=== PATIENT | male | born 1935 ===

== ENCOUNTER 2022-09-28 18:24 | Inpatient (IN) | payer MEDICARE, OTHER ==
[2022-09-28] VITALS (10 sets, daily range): BP systolic 149–181; BP diastolic 68–128
[~2022-09-28] VITALS: Ht 195.6 cm; Wt 59.2 kg
[2022-09-28 21:26] LABS: BASOPHILS ABSOLUTE AUTO 0.03 K/mm3 (0.00-0.23); BASOPHILS PERCENT AUTO 0 % (0-2); EOSINOPHILS ABSOLUTE AUTO 0.07 K/mm3 (0.00-0.68); EOSINOPHILS PERCENT AUTO 1 % (0-6); Hematocrit 47.1 % (37.0-53.0); Hemoglobin 15.1 g/dL (13.5-17.5); IMMATURE GRAN ABSOLUTE AUTO 0.07 K/mm3 (0.00-0.10); IMMATURE GRAN PERCENT AUTO 1 % (0-1); LYMPHOCYTES ABSOLUTE AUTO 4.35 K/mm3 (0.84-5.20); LYMPHOCYTES PERCENT AUTO 36 % (21-46); MONOCYTES ABSOLUTE AUTO 0.68 K/mm3 (0.16-1.47); MONOCYTES PERCENT AUTO 6 % (4-13); Mean Corpuscular HGB 29.9 pg (26.0-34.0); Mean Corpuscular HGB Conc 32.1 g/dL (31.5-36.5); Mean Corpuscular Volume 93 fL (80-100); Mean Platelet Volume 10.6 fL (9.1-12.4); NEUTROPHILS ABSOLUTE AUTO 6.87 K/mm3 (1.96-9.15); NEUTROPHILS PERCENT AUTO 57 % (41-73); Platelet Count 312 K/mm3 (150-400); RDW Coefficient Variation 16.8 % (11.7-14.2); RDW Standard Deviation 57.3 fL (35.1-46.3); Red Blood Cell Count 5.05 M/mm3 (4.30-5.90); White Blood Cell Count 12.07 K/mm3 (4.00-11.30)
[2022-09-28 21:44] LABS: Albumin, Blood 3.1 g/dL (3.4-5.0); Anion Gap 7 mmol/L (6-16); Blood Urea Nitrogen 22 mg/dL (8-24); CO2, Blood 30 mmol/L (21-32); Calcium, Blood 9.1 mg/dL (8.5-10.1); Chloride, Blood 107 mmol/L (98-108); Glomerular Filtration Rate 66 (60-); Glucose, Blood 111 mg/dL (70-99); Phosphorus, Blood 3.3 mg/dL (2.5-4.9); Potassium, Blood 3.7 mmol/L (3.5-5.5); Sodium, Blood 144 mmol/L (136-145)
[2022-09-28 21:51] LABS: Anti-Xa UFH, PHA Monitoring 0.69 IU/mL; International Normalized Ratio 1.19; Prothrombin Time Results 12.4 Sec (9.7-11.5)
--- NOTE | 2022-09-28 22:03 | NUR ---
ASSUMED CARE PT ARRIVED ON UNIT AT 2024. SPO2 >92% ON RA W/ HEPARIN RUNNING AT 18 UNITS/KG/HR; 22.7 MLS/HR. SBP IN THE 160-170'S. A&O X4. PT WAS TACHYPNEIC AND DENIED C/P FOR THIS RN, BUT STATED TO DR OMER THAT HE HAD AN "ACHINESS" IN HIS CHEST. HAS WET COUGH THAT PT STATES HE HAS HAD FOR 4 WEEKS. PT'S BILATERAL EXTREMITIES ARE CYANOTIC; PT DENIES NUMBNESS/TINGLING. CAP REFILL >3 SECONDS IN ALL EXTREMITIES. REDNESS NOTED ON COCCYX AND MIDDLE OF BACK. AFEBRILE.
[2022-09-29] VITALS (32 sets, daily range): BP systolic 126–189; BP diastolic 52–112
--- NOTE | 2022-09-29 01:00 | NUR ---
UPDATE PT HAVING SHORT IVELISSE EPISODES; NOW ON 2L NC. DR RUBIO NOTIFIED W/ NO NEW ORDERS.
[2022-09-29 01:30] LABS: BASOPHILS ABSOLUTE AUTO 0.06 K/mm3 (0.00-0.23); BASOPHILS PERCENT AUTO 1 % (0-2); EOSINOPHILS ABSOLUTE AUTO 0.09 K/mm3 (0.00-0.68); EOSINOPHILS PERCENT AUTO 1 % (0-6); Hematocrit 45.8 % (37.0-53.0); Hemoglobin 14.7 g/dL (13.5-17.5); IMMATURE GRAN ABSOLUTE AUTO 0.11 K/mm3 (0.00-0.10); IMMATURE GRAN PERCENT AUTO 1 % (0-1); LYMPHOCYTES ABSOLUTE AUTO 4.62 K/mm3 (0.84-5.20); LYMPHOCYTES PERCENT AUTO 36 % (21-46); MONOCYTES ABSOLUTE AUTO 0.78 K/mm3 (0.16-1.47); MONOCYTES PERCENT AUTO 6 % (4-13); Mean Corpuscular HGB 29.6 pg (26.0-34.0); Mean Corpuscular HGB Conc 32.1 g/dL (31.5-36.5); Mean Corpuscular Volume 92 fL (80-100); Mean Platelet Volume 10.6 fL (9.1-12.4); NEUTROPHILS ABSOLUTE AUTO 7.31 K/mm3 (1.96-9.15); NEUTROPHILS PERCENT AUTO 56 % (41-73); Platelet Count 320 K/mm3 (150-400); RDW Coefficient Variation 16.8 % (11.7-14.2); RDW Standard Deviation 56.5 fL (35.1-46.3); Red Blood Cell Count 4.97 M/mm3 (4.30-5.90); White Blood Cell Count 12.97 K/mm3 (4.00-11.30)
[2022-09-29 02:05] LABS: Bilirubin, Total 1.5 mg/dL (0.1-1.0); Bun/Creatinine Ratio 21.7 (12.0-20.0); Creatinine, Blood 1.06 mg/dL (0.60-1.20); Globulin, Blood 2.9 g/dL (2.2-4.0); Magnesium, Blood 2.4 mg/dL (1.6-2.4); Potassium, Blood 3.5 mmol/L (3.5-5.5); Total Protein, Blood 5.9 g/dL (6.4-8.2)
--- NOTE | 2022-09-29 02:19 | NUR ---
UPDATE PT WAS IVELISSE IN THE HIGH 30'S LOW 40'S THEN BECAME TACHY UP INTO THE 150-160'S. PT DENIES ANY SYMPTOMS.
--- NOTE | 2022-09-29 05:44 | NUR ---
SHIFT SUMMARY PT HAS BEEN RESTLESS T/O NIGHT; INTERMITTANT CONFUSION/FORGETFULNESS, BUT EASILY REDIRECTIBLE (UNSURE IF THIS IS BASELINE). PT URINATED FREQUENTLY T/O NIGHT, USED URINAL APPROPRIATELY AND HAD ONE EPISODE OF BEDWETTING. PT REMAINS ON 2L NC. NO OTHER EVENTS OCCURRED SINCE PREVIOUS NOTES.
--- NOTE | 2022-09-29 08:20 | NUR ---
ASSUMED CARE REPORT FROM BRETT SIMS AT 0700. PT RESTING IN BED. WAKES c VERBAL STIMULI. ORIENTED TO SELF ONLY. REORIENTS EASILY. FOLLOWS COMMANDS. DENIES COMPLAINTS. SPEAKS IN FULL SENTENCES. LUNGS COARSE THROUGHOUT. NON PRODUCTIVE COUGH. ON RA, O2 SATS >92%. AFIB ON MONITOR, RATE 90-100'S. HTN NOTED. DISCOLORATION TO EXT. PT STATES THIS STARTED SEVERAL MONTHS AGO. CAP REFILL <3 SEC. ABD ROUND, SOFT, NON TENDER. BT X 4. HEPARIN GTT INFUSING AT 18 UNIT/KG/HR. AWAITING ECHO. WILL CONTINUE TO MONITOR.
--- NOTE | 2022-09-29 13:28 | NUR ---
Pt resting in bed upon arrival. Pt A&OX3. Pt a little confused on place thinking he was still in [place]. Engaged in therapeutic discussion regarding code status wishes. Educated on life sustaining treatments including risks and implications of CPR/Intubation. Answered questions and offered therapeutic listening. Pt reports understanding of information given and would like to remain a full code. Palliative Care will remain available
[2022-09-29] MEDS ORDERED: ELIQUIS5 M3 PO (15:48)
[2022-09-29] MEDS ORDERED: METOPROLOL TART25 MG PO (15:49)
[2022-09-29] MEDS ORDERED: LOSARTAN POTASS25 M2 PO (15:49)
[2022-09-29] MEDS ORDERED: Ventolin/Prove6.7 GM INH (15:49)
--- NOTE | 2022-09-29 17:16 | NUR ---
Case Conference Note Received call from Pt's primary RN Stephanie reporting daughter would like Pt to be DNR. Called and spoke with Pt's daughter Evelyn. Provided update and reviewed plan of care. Offered therapeutic listening as Evelyn reports Pt is living with her. She reports Pt has confusion at baseline and has been diagnosed with Alheimer's Dementia. She also reports Pt has active prostate cancer, leukemia, and a history of Afib. She reports Pt is not actively treating his cancers as his doctor told her that Pt will pass from something else before the cancer runs it's coarse due to be slow growing. Daughter Evelyn reports Pt needs to be DNR as she understands the risks and implications to CPR. Continued therapeutic listening and answered questions. Will speak with Dr Youssef regarding code status wishes. Nikki Rivas [phone] Palliative Care will remain available
--- NOTE | 2022-09-29 17:54 | NUR ---
SHIFT SUMMARY PT STATUS CHANGED TO PCU. REMAINS ON HEPARIN GTT. PT A&OX 1. REORIENTS EASILY. FOLLOWS SIMPLE COMMANDS. LUNGS COARSE, PLACED ON 2L VIA NC. NON PRODUCTIVE COUGH. PT INTERMITTANTLY SOB, ABLE TO WARE FINISHER BREATHING. PT HAD ONE EPISODE OF TACHY-IVELISSE, CARDIOLOGY CONSULTED, NO PLANNED INTERVENTIONS. CONTINUES TO HAVE DISCOLORATION TO EXT. UPDATED DAUGHTER, REPORTS PT HAS MULTIPLE COMORBITITES, PUT IN TOUCH c PALLIATIVE CARE. WILL CONTINUE TO MONITOR UNTIL REPORT TO ONCOMING NURSE.
--- NOTE | 2022-09-29 19:26 | NUR ---
ASSUEMD CARE PATIENT IN BED AWAKE ALERT TO SELF. NO FAMILY AT BEDSIDE. HEPARIN INFUSING AT 18U/KG/HR.
[2022-09-30] VITALS (11 sets, daily range): BP systolic 128–195; BP diastolic 73–102
[2022-09-30 04:22] LABS: Calcium, Blood 8.5 mg/dL (8.5-10.1); Creatinine, Blood 0.83 mg/dL (0.60-1.20); Magnesium, Blood 2.1 mg/dL (1.6-2.4); Phosphorus, Blood 2.6 mg/dL (2.5-4.9); Potassium, Blood 3.9 mmol/L (3.5-5.5)
--- NOTE | 2022-09-30 06:27 | NUR ---
SHIFT SUMMARY PATIENT ALERT TO SELF. CONFUSED/FORGETFUL/HALLUCINATIONS. IN AFIB WITH OCCASIONAL BRADYCARDIA EPISODED INTO THE 30'S NON SUSTAINED. TACHYPENIC. INCONT/CONTINET. HEPARIN INFUSING, ANTI XA THERAPEUTIC.
--- NOTE | 2022-09-30 09:24 | NUR ---
ASSUMED CARE REPORT FROM ELADIO SIMS AT 0700. PT RESTING IN BED. AWAKE. A&OX 1. THINKS HE IS [place]HO[place]. REORIENTS EASILY. FOLLOWS COMMANDS. C/O PIERCE AND INCREASED SOB. MEDICATED c TYLENOL. LUNGS COARSE c OCCASIONALLY WHEEZING. DR ESCOBAR NOTIFIED FOR BREATHING TX. NON PRODUCTIVE COUGH. AFIB, RATE 80-90'S. BP STABLE. DISCOLORATION TO EXT. CAP REFILL>3 SEC. ABD ROUND, SOFT, NON TENDER. BT X 4 GOOD APPETITE THIS AM. HEPARIN GTT INFUSING. WILL CONTINUE TO MONITOR.
--- NOTE | 2022-09-30 17:29 | NUR ---
SHIFT SUMMARY PT A&O X2, REORIENTS EASILY. FOLLOWS COMMANDS. CONTINUES ON HEPARIN GTT, PLAN TO TRANSITION TO [facility] AT 2100. PT HAS INTERMITTANT SOB, RESOLVES c COACHING. LUNGS COARSE, ON RA, O2 SATS >92%. NON PRODUCTIVE COUGH. PT HAS HAD MULTIPLE EPISODES OF BRADYCARDIA, RATE MID 30'S. CORRELATED c PT USING URINAL. RESOLVES SPONTANEOUSLY. BP STABLE. DISCOLORATION TO EXT IMPROVED THIS SHIFT. BEDBATH COMPLETE. UP TO CHAIR FOR DINNER. WILL CONTINUE TO MONITOR UNTIL REPORT TO ONCOMING NURSE.
--- NOTE | 2022-09-30 19:21 | NUR ---
ASSUMED CARE PATIENT IN BED RESTING W/EYES CLOSED. NO FAMILY AT BEDSIDE. PATIENT IN AFIB RATE 60-70'S. ON RA SATS >92% HEPARIN INFUSING. BED ALARM/CALL LIGHT WITHIN REACH.
[2022-10-01] VITALS (11 sets, daily range): BP systolic 144–175; BP diastolic 82–108
[2022-10-01 03:59] LABS: Hemoglobin 14.3 g/dL (13.5-17.5); Mean Corpuscular HGB 29.9 pg (26.0-34.0); Mean Corpuscular HGB Conc 32.5 g/dL (31.5-36.5); Mean Corpuscular Volume 92 fL (80-100); Mean Platelet Volume 11.1 fL (9.1-12.4); Platelet Count 292 K/mm3 (150-400); RDW Coefficient Variation 16.5 % (11.7-14.2); RDW Standard Deviation 55.2 fL (35.1-46.3); Red Blood Cell Count 4.79 M/mm3 (4.30-5.90); White Blood Cell Count 13.11 K/mm3 (4.00-11.30)
[2022-10-01 04:23] LABS: Albumin, Blood 2.9 g/dL (3.4-5.0); Anion Gap 5 mmol/L (6-16); Blood Urea Nitrogen 33 mg/dL (8-24); Bun/Creatinine Ratio 42.2 (12.0-20.0); CO2, Blood 27 mmol/L (21-32); Calcium, Blood 8.8 mg/dL (8.5-10.1); Chloride, Blood 105 mmol/L (98-108); Creatinine, Blood 0.78 mg/dL (0.60-1.20); Glomerular Filtration Rate 87 (60-); Glucose, Blood 109 mg/dL (70-99); Magnesium, Blood 2.4 mg/dL (1.6-2.4); Phosphorus, Blood 2.9 mg/dL (2.5-4.9); Potassium, Blood 4.8 mmol/L (3.5-5.5); Sodium, Blood 137 mmol/L (136-145)
--- NOTE | 2022-10-01 06:43 | NUR ---
SHIFT SUMMARY PATIENT REMAINS A&O TO SELF. HAD SEVERAL EPISODES OF BRADYCARDIA LOW 29, NON SUSTAINED HR NORMALIZED AFTER PLACING THE PATIENT IN A SUPINE POSITION.
--- NOTE | 2022-10-01 08:00 | NUR ---
ASSUMED CARE REPORT FROM ELADIO SIMS AT 0700. PT RESTING IN BED. AWAKE, ORIENTED TO SELF ONLY. FOLLOWS SIMPLE DIRECTIONS. ABLE TO MAKE NEEDS KNOWN. DENIES COMPLAINTS AT THIS TIME. AFIB ON MONITOR, RATE 70'S. OCCASIONAL EPISODES OF BRADYCARDIA LASTING 6-10 SEC. AT TIMES PT SYMPTOMATIC c SOB, OTHER TIMES DENIES SYMPTOMS. BP STABLE. HAS LABORED, TACHYPNEIC RESP c EPISODES. ABLE TO ETL BI DEVELOPER DEEP BREATHING. WILL CONTINUE TO MONITOR.
--- NOTE | 2022-10-01 17:13 | NUR ---
SHIFT SUMMARY/TRANSFER TO PCU NO ACUTE CHANGES THIS SHIFT. PT HAVING FEWER EPISODES OF BRADYCARDIA THAN THIS AM. INTERMITTANTLY SOB. DAUGHTER STATES THIS HAS BEEN HAPPENING AT HOME FOR SEVERAL YEARS. A&OX 1. REORIENTS EASILY. LUNGS COARSE, NON PRODUCTIVE COUGH. AFIB ON MONITOR. RATE 70'S. BP STABLE. UP TO CHAIR FOR DINNER. WILL TRANSFER TO PCU 18 p DINNER c ALL BELONGINGS.
--- NOTE | 2022-10-01 18:13 | NUR ---
PT ARRIVED TO ROOM FROM ICU TRANSFERRED W/MIN MARC FROM TO BED. WANTED TO SIT ON EDGE OF BED TO CATCH BREATH. TELE PLACED AND VERIFIED. LUNGS COARSE T/O. HR 87. 100RA. TACHYPNIC AT 28. TEMP 97.0. BP 175/106. MANAGER RFID CALLED AND LM FOR DAUGHTER NOTIFYING OF ROOM CHANGE.
[2022-10-02] VITALS: BP 149/93
[2022-10-02 03:55] VITALS: BP 147/91
--- NOTE | 2022-10-02 04:52 | NUR ---
SHIFT SUMMARY PT IS A/Ox2-3 AND IS MOSTLY COOPERATIVE WITH CARE PROVIDED BY MEMBERS OF STAFF. ANSWERS QUESTIONS APPROPRIATELY AND ABLE TO COMMUNICATE MOST NEEDS. NO ACUTE EVENTS LAST NIGHT FOR PT SLEPT FOR MOST OF THE SHIFT. REMAINS CONFUSED AT TIMES AND TENDS TO PULL OFF ALL LINES AND CORDS. ABLE TO BE EASILY REDIRECTED HOWEVER. MAINTAINS SPO2 >90% ON 2-3L VIA NC. INCREASED RR WELL REPORTS OF SOB WHEN PT IS NOT ON O2. SOB NOTED WITH EXERTION, BUT HE IS ABLE TO RECOVER WELL. CARDIAC NOEL, REMAINS IN AFIB WITH HR RANGING 80-100'S. NO C/O CP OR PRESSURE T/O THE NIGHT. BP WAS STABLE. ABLE TO ABULATE TO BSC OR BATHROOM. INCONTINENT/CONTINENT FOR HE TENDS TO HAVE ACCIDENTS T/O THE NIGHT. NO NEW ORDERS AT THIS TIME, WILL REPORT TO ONCOMING RN. TATO MUNGUIA T/O THE SHIFT
[2022-10-02 04:53] LABS: Hematocrit 42.1 % (37.0-53.0); Hemoglobin 13.8 g/dL (13.5-17.5); Mean Corpuscular HGB 30.1 pg (26.0-34.0); Mean Corpuscular HGB Conc 32.8 g/dL (31.5-36.5); Mean Corpuscular Volume 92 fL (80-100); Mean Platelet Volume 10.8 fL (9.1-12.4); Platelet Count 268 K/mm3 (150-400); RDW Coefficient Variation 16.5 % (11.7-14.2); Red Blood Cell Count 4.58 M/mm3 (4.30-5.90); White Blood Cell Count 15.22 K/mm3 (4.00-11.30)
[2022-10-02 05:17] LABS: Anion Gap 4 mmol/L (6-16); Blood Urea Nitrogen 32 mg/dL (8-24); Bun/Creatinine Ratio 40.2 (12.0-20.0); CO2, Blood 27 mmol/L (21-32); Calcium, Blood 8.7 mg/dL (8.5-10.1); Chloride, Blood 106 mmol/L (98-108); Glomerular Filtration Rate 87 (60-); Glucose, Blood 101 mg/dL (70-99); Magnesium, Blood 2.3 mg/dL (1.6-2.4); Phosphorus, Blood 2.9 mg/dL (2.5-4.9); Potassium, Blood 4.2 mmol/L (3.5-5.5); Sodium, Blood 137 mmol/L (136-145)
[2022-10-02 08:10] VITALS: BP 175/86
[2022-10-02] MEDS ORDERED: METO25ER PO (11:30)
[2022-10-02 13:20] VITALS: BP 145/78
--- NOTE | 2022-10-02 13:20 | NUR ---
ASSUMED CARE OF PT AT 0700 THIS AM. SEE DOCUMENTED VS AND ASSESSMENT. PLANS TO D/C PT HOME WITH HIS DTR TODAY PT D/C'D HOME WITH HIS DTR APROX 1330. RX SENT TO PT'S PHARMACY OF CHOICE AND VERIFIED [facility] PT'S DTR. DISCHARGE TEACHING, MEDICATION LIST AND FOLLOW UP INSTRUCTIONS REVIEWED WITH PT'S DTR, WHO IS HIS CAREGIVER. PT WAS EVALUATED BY RT AND DID NOT NEED HOME O2. PT'S DTR VERBALIZES UNDERSTANDING OF DISCHARGE TEACHING AND HAS NO FURTHER QUESTIONS OR CONCERNS AT THIS TIME. IV TO RFA REMOVED, SITE WNL. ALL BELONGINGS SENT HOME WITH PT. NO FURTHER DISCHARGE NEEDS IDENTIFIED.
== END 2022-10-02 13:36 | disposition home or self-care (01) | DRG 175 ==
LOC: ICUE 18:24 → PCU 20:08 → ICUW 20:08 → ICUE 09-29 05:26 → PCU 10-01 17:54
PROVIDERS: Internal Medicine; ADMIT Student in an Organized Health Care Education/Training Program
DX: I26.99 Other pulmonary embolism without acute cor pulmonale (principal); E43 Unspecified severe protein-calorie malnutrition; I48.20 Chronic atrial fibrillation, unspecified; Z68.1 Body mass index [BMI] 19.9 or less, adult; Z66 Do not resuscitate; Z59.00 Homelessness unspecified; Z91.148 Patient's other noncompliance with medication regimen for other reason; C61 Malignant neoplasm of prostate; J44.9 Chronic obstructive pulmonary disease, unspecified; G30.9 Alzheimer's disease, unspecified; I73.00 Raynaud's syndrome without gangrene; F02.80 Dementia in other diseases classified elsewhere, unspecified severity, without behavioral disturbance, psychotic disturbance, mood disturbance, and anxiety; I49.5 Sick sinus syndrome; I10 Essential (primary) hypertension; F17.210 Nicotine dependence, cigarettes, uncomplicated; Z71.6 Tobacco abuse counseling; Z99.81 Dependence on supplemental oxygen; Z85.6 Personal history of leukemia; Z86.718 Personal history of other venous thrombosis and embolism; Z95.828 Presence of other vascular implants and grafts; Z88.0 Allergy status to penicillin; Z79.01 Long term (current) use of anticoagulants; Z79.899 Other long term (current) drug therapy
CPT/HCPCS: 36415; 71045; 80048; 80053; 80069; 83735; 84100; 84145; 84443; 84484; 85025; 85027; 85520; 85610; 85730; 93306; 93970; 94640; 94664; 94760; 94761; 94762; 97162; 97166; 97530; A9270; J0360; J1644